=== PATIENT | male | born 1990 | race African-American/Black ===

== ENCOUNTER 2017-01-18 09:53 | Observation (INO) ==
[2017-01-18] MEDS ORDERED: ONDANSETRON 4 MG/2 ML VIAL ONE (10:18)
[2017-01-18] MEDS ORDERED: ALUM/MAG/SIMETH/LIDO VISC 1:1 30 ML BOTTLE PO ONE (10:18)
--- NOTE | 2017-01-18 10:20 | Emergency Department Note ---
Arrival - Arrival Chief Complaint: Abdominal / Flank Pain Stated Complaint: stomach ED Nursing Triage Note: Pt c/o generalized abd pain (sharp pain) with nausea and vomiting x 2 days. Mode of Arrival: Ambulatory Limitations: No Limitations Source: Patient, Significant other, RN Notes Reviewed Time Seen by Provider: 01/18/17 10:09 - History of Present Illness HPI Narrative: 26-year-old -B[place]an male complains of generalized abdominal pain 2 days and nausea and vomiting that started today. Patient states that the abdominal pain is sharp in nature and cramping when he begins to vomit. Patient states "he kind of feels like heartburn." Patient states that he was last able to keep food down on yesterday. Reports that he has had about 6-7 bouts of emesis today. Denies bright red blood in vomit and coffee-ground appearance. Reports last bowel movement on yesterday and describes it as normal. Denies fever, diarrhea, sore throat. He states that he has a history of hypertension for approximately 6 years. He has not been medication compliant. States that he was seen in the ED approximately 2 months ago and was started on hydrochlorothiazide, but does not take that as prescribed. Past medical history: Hypertension Medication: Hydrochlorthiazide Primary care provider: none Allergies/Adverse Reactions: Allergies Allergy/AdvReac Type Severity Reaction Status Date / Time No Known Allergies Allergy Verified 02/28/15 16:45 Home Medications: Home Medications Medication Instructions Recorded Confirmed Type Lisinopril 1 tablet PO DAILY 01/18/17 01/18/17 History hydroCHLOROthiazide 1 tablet PO DAILY 01/18/17 01/18/17 History [Hydrochlorothiazide] Review of System - Review of System 12 point system: reviewed and no additional remarkable complaints except as stated - Review of System Constitutional: Present: as per HPI Head/Ears/Nose/Throat: Present: see HPI Gastrointestinal: Present: as per HPI Medical,Surgical,& Family Hx - Medical History Cardio: History of: Hypertension (does not take his bp meds) - Social History Smoking Status: Current every day smoker Exam Physical Examination: - General General appearance: alert, in no apparent distress - Head Head exam: Present: atraumatic, normocephalic, normal inspection - Eye Eye exam: Present: normal appearance, EOMI - ENT ENT exam: Present: Posterior pharynx mild erythema - Neck Neck exam: Present: normal inspection, full ROM. Absent: tenderness, lymphadenopathy - Chest Chest inspection: Present: symmetric chest wall rise - Respiratory Respiratory exam: Present: normal lung sounds bilaterally - Cardiovascular Cardiovascular exam: Present: regular rate, normal rhythm, normal heart sounds - Abdominal Exam Abdominal exam: Present: soft, hyperactive bowel sounds, epigastric tenderness - Neurological Exam Neurological exam: Present: alert, oriented X3, normal gait - Psychiatric Psychiatric exam: Present: normal affect, normal mood - Skin Skin exam: Present: warm, dry, intact Vital Signs: Vital Signs Temperature 98.2 F 01/19/17 12:00 Pulse Rate 68 01/19/17 12:00 Respiratory Rate 17 01/19/17 12:00 Blood Pressure 145/81 01/19/17 12:00 O2 Sat by Pulse Oximetry 99 01/19/17 12:00 Results - Labs CBC & BMP: 01/19/17 02:43 01/19/17 02:43 Lab Results: I have reviewed the patients labs Labs: Laboratory Tests 01/18/17 01/18/17 01/18/17 10:25 10:25 10:25 WBC 13.6 H RBC 4.69 Hgb 15.0 Hct 42.5 MCV 90.6 MCH 32 MCHC 35.3 RDW 12.8 Plt Count 263 MPV 11.4 Neut % (Auto) 76.1 H Lymph % (Auto) 15.2 L Rains % (Auto) 6.3 Eos % (Auto) 1.7 Baso % (Auto) 0.3 Neut # (Auto) 10.3 H Lymph # (Auto) 2.1 Rains # (Auto) 0.9 H Eos # (Auto) 0.2 Baso # (Auto) 0.0 Immature Gran % 0.4 Nucleated RBC % 0.0 Immature Gran # 0.05 Nucleated RBCs # 0.00 Immature Plt Fraction 0.0 Sodium 139 Potassium 3.9 Chloride 107 Carbon Dioxide 26 Anion Gap 9.9 BUN 43 H Creatinine 6.20 H GFR Calculation 16 BUN/Creatinine Ratio 6.00 Glucose 120 H Hemoglobin A1c 5.5 Calculated Osmolality 288.5 Calcium 9.1 Total Bilirubin 0.40 AST 20 ALT 21 Alkaline Phosphatase 108 Total Protein 8.9 H Albumin 3.7 Globulin 5.2 H Albumin/Globulin Ratio 0.7 L Amylase 246 H Lipase 350.0 Urine Color Urine Appearance Urine pH Ur Specific [place] Urine Protein Urine Glucose (UA) Urine Ketones Urine Blood Urine Nitrate Urine Bilirubin Urine Urobilinogen Urine Leukocytes Urine RBC Urine WBC Ur Squamous Epith Cells Urine Bacteria Ur Culture Indicated? 01/18/17 10:25 WBC RBC Hgb Hct MCV MCH MCHC RDW Plt Count MPV Neut % (Auto) Lymph % (Auto) Rains % (Auto) Eos % (Auto) Baso % (Auto) Neut # (Auto) Lymph # (Auto) Rains # (Auto) Eos # (Auto) Baso # (Auto) Immature Gran % Nucleated RBC % Immature Gran # Nucleated RBCs # Immature Plt Fraction Sodium Potassium Chloride Carbon Dioxide Anion Gap BUN Creatinine GFR Calculation BUN/Creatinine Ratio Glucose Hemoglobin A1c Calculated Osmolality Calcium Total Bilirubin AST ALT Alkaline Phosphatase Total Protein Albumin Globulin Albumin/Globulin Ratio Amylase Lipase Urine Color Straw Urine Appearance Clear Urine pH 6.0 Ur Specific [place] 1.007 Urine Protein >=500 Urine Glucose (UA) Negative Urine Ketones Negative Urine Blood Negative Urine Nitrate Negative Urine Bilirubin Negative Urine Urobilinogen < 2.0 H Urine Leukocytes Negative Urine RBC <1 Urine WBC 2 Ur Squamous Epith Cells Occasional Urine Bacteria Occasional Ur Culture Indicated? Not indicated - Diagnostic Findings Procedure: CT Abdomen and Pelvis: report reviewed by me (No acute intra- abdominal or pelvic pathology present.) Disposition Clinical Impression: Elevated serum creatinine, Nausea and vomiting Case discussed with: patient Disposition: Still a Patient Condition: Guarded
[2017-01-18] MEDS ORDERED: ONDANSETRON 4 MG/2 ML VIAL IV STA (10:30)
[2017-01-18] MEDS ORDERED: ALUM/MAG/SIMETH/LIDO VISC 1:1 30 ML BOTTLE PO STA (10:31)
[2017-01-18] MEDS ORDERED: SODIUM CHLORIDE 0.9% 1,000 ML IV STA (10:31)
[2017-01-18 11:14] LABS: Basophils % 0.3 % (0.0-0.8); Eosinophils # 0.2 10*3/uL (0.0-0.87); Eosinophils % 1.7 % (0.00-10.9); Hematocrit 42.5 VOL% (42.0-52.0); Immature Granulocytes % 0.4 %; Immature Granulocytes Absolute 0.05 #; Lymphocytes # 2.1 10*3/uL (1.4-4.0); Lymphocytes % 15.2 % (21.2-54.2); Mean Corpuscular HGB Conc 35.3 GM/DL (32-36); Mean Corpuscular Hemoglobin 32 PG (27-34); Mean Corpuscular Volume 90.6 FL (87-102); Mean Platelet Volume 11.4 FL (9.6-12.0); Monocytes # 0.9 10*3/uL (0.11-0.8); Monocytes % 6.3 % (1.7-12.7); Neutrophils # 10.3 10*3/uL (1.4-7.4); Neutrophils % 76.1 % (38.7-73.9); Platelet Count 263 T/CUMM (130-400); Red Blood Count 4.69 MC/CUMM (3.8-5.5); Red Cell Distribution Width 12.8 % (9.3-17.3); White Blood Count 13.6 T/CUMM (4-12)
[2017-01-18 11:30] LABS: Albumin 3.7 G/DL (3.4-5.0); Bilirubin,Total 0.4 MG/DL (0.2-1.0); Calcium 9.1 MG/DL (8.5-10.1); Osmolality,Calculated 288.5 MOS/KG (273-304); Potassium 3.9 MMOL/L (3.5-5.1); Total Protein 8.9 G/DL (6.4-8.3)
--- NOTE | 2017-01-18 12:37 | CT Report ---
Exam: CT abdomen pelvis wo con Date: 01/18/2017 11:52 AM Comparison: None Indication: Generalized abdominal pain Total DLP: 254.6 mGy*cm Technical: No oral contrast was administered. Images were obtained from the lung bases to the iliac crest continuation through the pelvis without intravenous contrast with axial sagittal coronal imaging available for review. Dose reduction was performed with decreasing kv and mA and automated exposure Findings: Lung bases: No obvious infiltrates or effusions heart is normal in size Liver and Spleen: Unremarkable Gallbladder and Pancreas: Unremarkable Adrenals: Unremarkable Kidneys: No obvious obstruction or stones present or mass lesion. Stomach: Incomplete distended with air-fluid and debris Retroperitoneum: No enlarged lymph nodes. Aorta and IVC: No obvious aneurysm aorta vessels and IVC are unremarkable. Exam is otherwise limited without contrast. Bowel and Mesentery: Scattered stool and debris present. No evidence of diverticulosis diverticulitis or appendicitis present. No pneumoperitoneum or free fluid Pelvis: Bladder: Incompletely distended with fluid Fluid: No free fluid identified. Lymph nodes: No enlarged lymph nodes. Pelvic organs: Unremarkable Osseous structures: No suspicious appearing osseous abnormalities noted. Impression: 1. No acute intra-abdominal or pelvic pathology present. PROCEDURE INTERPRETED AT [facility] DEPARTMENT OF RADIOLOGY Final Report Signed by: Dr. David Valencia
[2017-01-18] MEDS ORDERED: guaiFENesin/DM ER 600-30 MG TABLET PO PRN (13:08)
[2017-01-18] MEDS ORDERED: ONDANSETRON 4 MG/2 ML VIAL IV PRN (13:08)
[2017-01-18] MEDS ORDERED: DOCUSATE SODIUM 100 MG CAPSULE PO PRN (13:08)
[2017-01-18] MEDS ORDERED: diphenhydrAMINE CAP 25 MG CAPSULE PO PRN (13:08)
[2017-01-18] MEDS ORDERED: ACETAMINOPHEN 325 MG TABLET PO PRN ×2 (13:08)
[2017-01-18] MEDS ORDERED: NICOTINE 21 MG/24 HR PATCH TRANSDERM PRN (13:08)
[2017-01-18] MEDS ORDERED: PROMETHAZINE 25 MG/1 ML VIAL IM PRN (13:08)
[2017-01-18] MEDS ORDERED: SODIUM CHLORIDE 0.9% 1,000 ML IV ONE (13:16)
[2017-01-18] MEDS ORDERED: hydrALAZINE 20 MG/1 ML VIAL IV PRN (13:18)
--- NOTE | 2017-01-18 13:19 | Hospitalist History & Physical ---
Assessment and Plan - Time spent with patient Time spent with patient: Greater than 30 minutes (1) Hypertension Status: Acute Assessment and plan: 26-year-old -Austrian male with history of hypertension and medical noncompliance admitted by the hospitalist service with elevated serum creatinine of 6, abdominal pain, nausea vomiting. Patient will be admitted to the [facility] floor and given bolus and maintenance IV fluids. Patient will be given a clear liquid diet with pain and nausea control. Can advance the diet as tolerated. Patient needs to be started on a kidney protective blood pressure medicine. Will leave this up to Dr. Novoa. Hydralazine IV has been ordered as needed for now. Patient will need follow-up with a primary care physician for his blood pressure medications. We will also consult Dr. Parker from nephrology to evaluate patient's severely elevated creatinine of 6. This most likely is not acute but chronic in nature due to patient's longtime hypertension and medicine noncompliance. Dr. Novoa we will see and examine patient and further recommendations to follow. Current Visit: Yes (2) Elevated serum creatinine Status: Acute Current Visit: Yes (3) Abdominal pain Status: Acute Current Visit: Yes (4) Nausea and vomiting Status: Acute Current Visit: Yes History of Present Illness Chief complaint: Abdominal pain, nausea and vomiting History of present illness: Mr. Patino is a 26 year old -Austrian male with history of hypertension and noncompliance with medications presenting to fast track with 2 day history of abdominal pain associated with nausea vomiting. Patient states the pain is high up in the center of his stomach and hurts constantly. Patient states the vomiting started this morning. Patient denies bloody vomit or diarrhea. Patient states he has a headache when his blood pressures goes up. Patient states he does not have a family physician and when he gets headaches due to blood pressure he goes to the emergency room where he is given a month of blood pressure medication and then when he runs out he stops taking it. Patient has been doing this since he was 20 years old. Patient states he does work and he has a hard time making it to a doctor's appointment. Patient has a low-grade fever and blood pressures mildly elevated at 143/83 now. Upon admission it was 151/114. His white count is mildly elevated at 13.6, but his creatinine is 6.2 with a BUN of 43. His blood sugars are mildly elevated at 120 and he has a mildly elevated amylase at 246. Otherwise his labs are unremarkable. Patient' s UA is pending. CT the abdomen and pelvis is normal. Upon exam patient is nontender in the abdomen and his mucous membranes are moist, skin is warm and dry. After discussion with CLAUDY Arce and admitting hospitalist Dr. Novoa, it was agreed patient would be admitted for further evaluation and treatment. Patient has no medicines listed for home and he is a full code. Home Medications Medication Instructions Recorded Confirmed Type No Known Home Medications [No 02/28/15 02/28/15 History Known Home Medications] Allergies Allergy/AdvReac Type Severity Reaction Status Date / Time No Known Allergies Allergy Verified 02/28/15 16:45 Medical,Surgical,& Family Hx - Medical History Cardio: History of: Hypertension (does not take his bp meds) - Surgical History Abdominal Surgeries: Patient denies: Abdominal Surgery - Family History Family History: Reports;: Family Heart Disease - Social History Smoking Status: Current every day smoker Frequency of Alcohol Use: None Type of Drug Use: None Marital Status: Single Lives With:: Alone Functional capacity: independent ambulation 12 point system: reviewed and no additional remarkable complaints except as stated Exam - Constitutional Vitals: Period Temp Pulse Resp BP Sys/Pulido Pulse Ox Last 24 Hr 99.0 F-99.0 F 63-91 16-20 128-151/81-114 98-100 Exam: Constitutional System: No distress. No tremulousness. Head: Normocephalic, atraumatic. Ears, Nose and Throat System: No evidence of Otitis or Mastoiditis. No epistaxis or discharge Eyes System: Pupils equal, round, and reactive. Extraocular muscles intact. Neck: Supple, without adenopathy, No jugular venous distention. No thyromegaly, neck mass, or prior surgery apparent. Respiratory System: Chest clear to auscultation. Cardiovascular System: Heart with regular rate and rhythm. No murmur. GI System: Abdomen soft, nontender. Normo active bowel sounds present. Musculoskeletal System: limbs with no pedal edema. Full distal pulses. Neurological System: No discernable sensory deficit. No aphasia Psychiatric System: Conversation is rational Results - Labs CBC & BMP: 01/18/17 10:25 01/18/17 10:25 Lab Results: I have reviewed the past 24 hour labs - Diagnostic Findings Procedure: CT Abdomen and Pelvis: report reviewed by me (No acute process)
[2017-01-18] MEDS ORDERED: PANTOPRAZOLE 40 MG TABLET PO SCH (13:30)
[2017-01-18 13:33] LABS: Risk Ratio 3.81; VLDL CHOLESTEROL 33.8 MG/DL
[2017-01-18 13:54] LABS: Apearance,Urine CLEAR (Clear); Bacteria,Urine Occasional /HPF (Few); Bilirubin,Urine Negative (Negative); Blood, Urine Negative (Negative); Glucose,Urine (UA) Negative (Negative); Ketones,Urine Negative (Negative); Nitrite,Urine Negative (Negative); Protein,Urine >=500 MG/DL; RBC,Urine <1 /HPF (0-4); Squamous Epithelial Cell,Urine Occasional /HPF (0-10); Urine Color Straw (Yellow); Urine Specific Gravity 1.007 (1.001-1.035); Urine Urobilinogen < 2.0 EU/DL (0.2-1.0); WBC,Urine 2 /HPF (0-6)
[2017-01-18] MEDS ORDERED: NIFEdipine 10 MG CAPSULE PO PRN (16:26)
[2017-01-18] MEDS: amLODIPine 10 MG TABLET PO SCH (16:47)
[2017-01-18] MEDS: ALUMINUM/MAGNES/SIMETH MAX STR 30 ML UDCUP PO SCH ×2 (16:48→21:26)
[2017-01-18] MEDS: MORPHINE 2 MG/1 ML SYRINGE IV PRN ×2 (17:51→21:27)
[2017-01-18] MEDS: SODIUM CHLORIDE 0.9% 1,000 ML IV SCH (17:58)
--- NOTE | 2017-01-18 18:51 | Nephrology Consult Note ---
History of Present Illness Chief complaint: Acute renal failure History of present illness: Mr. Patino is a 26 year old male with history of hypertension has been working in the outside doing scaffolding work. The patient presented with a 2 day history of abdominal pain with nausea and vomiting. Patient serum creatinine noted to be up to 6.2. Patient denies NSAID use. He admits to tobacco use and denies any alcohol in the last 6-8 months. No shortness of breath or chest pain. No rashes or bruises. No problems going to the bathroom such as dysuria or hematuria. He has been on lisinopril and hydrochlorothiazide for the past month to 6 weeks. Nephrology is been consulted for acute renal failure. Home Medications Medication Instructions Recorded Confirmed Type Lisinopril 1 tablet PO DAILY 01/18/17 01/18/17 History hydroCHLOROthiazide 1 tablet PO DAILY 01/18/17 01/18/17 History [Hydrochlorothiazide] Allergies Allergy/AdvReac Type Severity Reaction Status Date / Time No Known Allergies Allergy Verified 02/28/15 16:45 Medical,Surgical,& Family Hx - Medical History Cardio: History of: Hypertension (does not take his bp meds) - Surgical History Abdominal Surgeries: Patient denies: Abdominal Surgery - Family History Family History: Reports;: Family Heart Disease - Social History Smoking Status: Current every day smoker Frequency of Alcohol Use: None Type of Drug Use: None Review of Systems Constitutional: no anorexia, no lethargy Cardiovascular: no chest pain at rest, no chest pain with activity, no dyspnea Gastrointestinal: abdominal pain, nausea, vomiting Exam - Vital Signs Vital signs: Period Temp Pulse Resp BP Sys/Pulido Pulse Ox Last 24 Hr 98.2 F-99.0 F 59-91 16-20 128-153/81-114 97-100 - General Appearance General appearance: well-developed, well-nourished EENT: ATNC Neck: supple Respiratory: clear Cardiology: regular rate, regular rhythm Gastrointestinal: normoactive bowel sounds, no tenderness Neurologic: CN 3-12 intact Musculoskeletal: no clubbing Psychiatric: mood/affect appropriate, cooperative Results - Labs CBC & BMP: 01/18/17 10:25 01/18/17 10:25 Assessment and Plan (1) Hypertension Status: Chronic Current Visit: Yes Qualifiers: Hypertension type: essential hypertension Qualified Code(s): I10 - Essential (primary) hypertension (2) Elevated serum creatinine Status: Acute Assessment and plan: Acute renal failure. May be some underlying chronic kidney disease. Recommend a renal ultrasound. Daily BMP. Strict I's and O's. Encourage p.o. intake. Current Visit: Yes (3) Abdominal pain Status: Acute Current Visit: Yes (4) Nausea and vomiting Status: Acute Current Visit: Yes
[2017-01-18] MEDS: PANTOPRAZOLE 40 MG TABLET PO SCH (21:27)
[2017-01-18] MEDS: METOPROLOL TARTRATE 25 MG TABLET PO SCH (21:28)
[2017-01-19] MEDS: ALUMINUM/MAGNES/SIMETH MAX STR 30 ML UDCUP PO SCH ×2 (00:53→04:08)
[2017-01-19] MEDS: SODIUM CHLORIDE 0.9% 1,000 ML IV SCH ×3 (00:54→14:55)
[2017-01-19] MEDS: MORPHINE 2 MG/1 ML SYRINGE IV PRN (01:12)
[2017-01-19 03:53] LABS: Basophils % 0.4 % (0.0-0.8); Eosinophils # 0.2 10*3/uL (0.0-0.87); Eosinophils % 2.2 % (0.00-10.9); Hematocrit 36.4 VOL% (42.0-52.0); Hemoglobin 12.4 GM/DL (14.0-18.0); Immature Granulocytes % 0.3 %; Immature Granulocytes Absolute 0.03 #; Lymphocytes # 1.8 10*3/uL (1.4-4.0); Lymphocytes % 16.5 % (21.2-54.2); Mean Corpuscular HGB Conc 34.1 GM/DL (32-36); Mean Corpuscular Hemoglobin 32 PG (27-34); Mean Corpuscular Volume 92.6 FL (87-102); Mean Platelet Volume 11.9 FL (9.6-12.0); Monocytes % 8.6 % (1.7-12.7); Neutrophils # 7.9 10*3/uL (1.4-7.4); Platelet Count 217 T/CUMM (130-400); Red Blood Count 3.93 MC/CUMM (3.8-5.5); Red Cell Distribution Width 12.5 % (9.3-17.3)
[2017-01-19 04:24] LABS: Calcium 8.2 MG/DL (8.5-10.1); Osmolality,Calculated 295.8 MOS/KG (273-304); Potassium 4.4 MMOL/L (3.5-5.1)
[2017-01-19] MEDS: PANTOPRAZOLE 40 MG TABLET PO SCH ×2 (09:27→22:45)
[2017-01-19] MEDS: amLODIPine 10 MG TABLET PO SCH (09:27)
[2017-01-19] MEDS: METOPROLOL TARTRATE 25 MG TABLET PO SCH ×2 (09:27→22:45)
--- NOTE | 2017-01-19 12:12 | Hospitalist Progress Note ---
Hospitalist: Subjective Interval history: The patient was admitted to the hospital with abdominal pain nausea and vomiting. He has history of moderate to severe central hypertension. The patient is improving with less abdominal pain, improved blood pressure, and minimally improved creatinine overnight with hydration. I am going to advance the diet and continue antiacid regimen. Will recheck electrolytes tomorrow. Exam - Constitutional Vitals: Period Temp Pulse Resp BP Sys/Pulido Pulse Ox Last 24 Hr 98.1 F-99.6 F 52-91 18-20 116-153/67-107 93-98 Results - Labs CBC & BMP: 01/19/17 02:43 01/19/17 02:43 Quality Measures - VTE Contraindication to Pharmacological VTE Prophylaxis: Clinical assessment deems Pt at low risk, no prophalaxis needed
--- NOTE | 2017-01-19 14:50 | Ultrasound Report ---
History: Acute renal failure Date: 01/19/2017 Study: Renal ultrasound bilateral kidneys only Comparison exam: No previous similar Real-time ultrasound images are captured and archived. The right kidney measures 9.3 x 3.5 x 5.6 cm; the left kidney measures 9.4 x 3.9 x 4.7 cm. There is no hydronephrosis or abnormal perinephric fluid. There is a 12 mm simple cyst at the lower left pole. There is no obvious solid mass. The renal parenchyma is hyperechoic to the hepatic parenchyma and is essentially isoechoic to the renal sinus fat. Impression: Medical renal parenchymal disease. Simple cyst lower pole left kidney PROCEDURE INTERPRETED AT [facility] DEPARTMENT OF RADIOLOGY Final Report Signed by: Dr. Skylar River
--- NOTE | 2017-01-19 19:12 | Nephrology Progress Note ---
Nephrology - PN: Subj Interval history: Patient continues to do acceptable. Serum creatinine is noted to be 5.8 which is trending down from 6.2 yesterday. No shortness of breath or chest pain. Renal ultrasound shows evidence of chronic kidney disease Exam (PN)-Nephrology - Vital Signs Vital signs: Period Temp Pulse Resp BP Sys/Pulido Pulse Ox Last 24 Hr 98.1 F-99.6 F 52-77 17-19 116-147/67-81 93-99 - General Appearance General appearance: well-developed, well-nourished EENT: ATNC Neck: supple Respiratory: clear Cardiology: regular rate, regular rhythm Gastrointestinal: normoactive bowel sounds Integumentary: no rash Neurologic: alert and oriented x3 Musculoskeletal: no clubbing Psychiatric: mood/affect appropriate, cooperative - Lab 01/19/17 02:43 01/19/17 02:43 Most recent lab results Calcium 8.2 MG/DL (8.5-10.1) L 01/19/17 02:43 Assessment and Plan (1) Hypertension Status: Chronic Current Visit: Yes Qualifiers: Hypertension type: essential hypertension Qualified Code(s): I10 - Essential (primary) hypertension (2) Elevated serum creatinine Status: Acute Assessment and plan: Acute renal failure. Patient has evidence of chronic kidney disease by renal ultrasound. Daily BMP. Strict I's and O's. Encourage p.o. intake. Current Visit: Yes (3) Abdominal pain Status: Acute Current Visit: Yes (4) Nausea and vomiting Status: Acute Current Visit: Yes (5) Chronic kidney disease Status: Chronic Assessment and plan: At this time striving to establish with level of chronic kidney disease this patient has. Do know that renal ultrasound is suggestive of chronic kidney disease with hypoechoic echotexture noted. Daily BMP. Current Visit: Yes
[2017-01-20 06:18] LABS: Calcium 8.1 MG/DL (8.5-10.1); Magnesium 2.1 MG/DL (1.8-2.4); Osmolality,Calculated 293.1 MOS/KG (273-304); Potassium 4.3 MMOL/L (3.5-5.1)
[2017-01-20] MEDS: SODIUM CHLORIDE 0.9% 1,000 ML IV SCH (07:00)
[2017-01-20] MEDS: METOPROLOL TARTRATE 25 MG TABLET PO SCH (09:49)
[2017-01-20] MEDS: amLODIPine 10 MG TABLET PO SCH (09:49)
[2017-01-20] MEDS: PANTOPRAZOLE 40 MG TABLET PO SCH (09:49)
--- NOTE | 2017-01-20 10:45 | Nephrology Progress Note ---
Nephrology - PN: Subj Interval history: Patient continues to do acceptable. Serum creatinine is noted to be 5.8 which is trending down from 6.2 yesterday. No shortness of breath or chest pain. Renal ultrasound shows evidence of chronic kidney disease 01/20/2017. The patient is resting comfortably. Serum creatinine is now down to 5.5. No shortness of breath or chest pain. Patient been able to tolerate his diet. Blood pressure is improved. Exam (PN)-Nephrology - Vital Signs Vital signs: Period Temp Pulse Resp BP Sys/Pulido Pulse Ox Last 24 Hr 98.2 F-98.9 F 66-77 16-18 131-146/67-82 95-99 - General Appearance General appearance: well-developed, well-nourished EENT: ATNC Neck: supple Respiratory: clear Cardiology: regular rate, regular rhythm Gastrointestinal: normoactive bowel sounds, no tenderness Neurologic: alert and oriented x3 Musculoskeletal: no clubbing Psychiatric: mood/affect appropriate, cooperative - Lab 01/19/17 02:43 01/20/17 05:28 Most recent lab results Calcium 8.1 MG/DL (8.5-10.1) L 01/20/17 05:28 Magnesium 2.1 MG/DL (1.8-2.4) 01/20/17 05:28 Assessment and Plan (1) Hypertension Status: Chronic Current Visit: Yes Qualifiers: Hypertension type: essential hypertension Qualified Code(s): I10 - Essential (primary) hypertension (2) Elevated serum creatinine Status: Chronic Assessment and plan: Chronic kidney disease. Encourage p.o. intake. Current Visit: Yes (3) Abdominal pain Status: Acute Current Visit: Yes (4) Nausea and vomiting Status: Acute Current Visit: Yes (5) Chronic kidney disease Status: Chronic Assessment and plan: At this time striving to establish with level of chronic kidney disease this patient has. Do know that renal ultrasound is suggestive of chronic kidney disease with hypoechoic echotexture noted. Patient needs to follow with me in 1 week. Avoid medicines such as Advil, Motrin, or Aleve, Goody powder BC powder. Also patient needs to avoid tobacco products. Current Visit: Yes Qualifiers: Chronic kidney disease stage: stage 4 (severe) Qualified Code(s): N18.4 - Chronic kidney disease, stage 4 (severe)
--- NOTE | 2017-01-20 11:06 | Discharge Summary ---
Hospital Course - Hospital Course Hospital Course: 26-year-old -Omani male with history of hypertension and medical noncompliance admitted by the hospitalist service on 01/18/2017 with elevated serum creatinine of 6, abdominal pain, nausea and vomiting. Patient was started on appropriate blood pressure medications and Dr. Parker from nephrology was consulted. Renal ultrasound shows evidence of chronic kidney disease with hypoechoic echotexture noted. Patient's blood pressures are controlled and his creatinine has decreased to 5.5. He needs to avoid medications such as Advil, Motrin, or Aleve along with Goody BC powder. Patient also instructed to avoid tobacco products. Patient's abdominal pain, nausea, and vomiting have all resolved. He is tolerating a diet and he feels much better. Instructed the patient that is very important that he follow-up with Dr. Parker and take his blood pressure medications as instructed. Patient will be discharged home with Norvasc and Lopressor to start. He will follow-up with Dr. Parker in his office in 1 week with a BMP. Complete discharge instructions were given. Care coordination, chart review, and completed discharge paperwork took approximately 40 minutes. - Time spent with patient Time with patient DS: Greater than 30 minutes Diagnosis - Discharge Diagnosis (1) Hypertension Status: Chronic (2) Elevated serum creatinine Status: Chronic (3) Abdominal pain Status: Resolved (4) Nausea and vomiting Status: Resolved Discharge Plan - Discharge Data Disposition: Disch To Home/Self Care Condition at Discharge: Stable Discharge Diet: low salt diet Activity: resume usual activities as tolerated Driving: no restrictions Contact your physician if you experience:: Nausea/Vomiting - Discharge Medications New amLODIPine [Norvasc] 10 mg PO DAILY #30 tablet Metoprolol Tartrate Tab [Lopressor Tab] 25 mg PO BID #60 tablet Nicotine 21 mg/24 Hr Patch [Nicoderm CQ 21 mg/24 hr Patch] 1 patch TRANSDERM DAILY PRN #30 patch PRN Reason: Nicotine Cravings Discontinued Lisinopril 1 tablet PO DAILY hydroCHLOROthiazide [Hydrochlorothiazide] 1 tablet PO DAILY - Follow Up or Referral Follow Up: Jeremy Parker Jr., MD [Physician] - 1 Week (with BMP) - Forms/Instructions Exam - Constitutional Vitals: Period Temp Pulse Resp BP Sys/Pulido Pulse Ox Last 24 Hr 98.2 F-98.9 F 66-77 16-18 131-146/67-82 95-99 Exam: 26-year-old -Omani male, no acute distress, alert and oriented Chest clear CV regular rate and rhythm Abdomen soft and nontender Extremities no edema Discharge Results Labs on day of discharge: Labs from last 24 hours 01/20/17 05:28 Sodium 142 Potassium 4.3 Chloride 110 H Carbon Dioxide 25 Anion Gap 11.3 BUN 37 H Creatinine 5.50 H GFR Calculation 19 BUN/Creatinine Ratio 6.00 Glucose 127 H Calculated Osmolality 293.1 Calcium 8.1 L Magnesium 2.1 Lipase 322.0 DS: Provider Date of admission: 01/18/17 13:08 Primary care physician: . No PCP Attending physician on admission: Billy Novoa MD Consults: 01/18/17 13:08 Consult to Physician [CONS] Routine Comment: new onset creatinine 6 Consulting Provider: Jeremy Parker Jr. When should Consulting Provider be notified: Now Person Notified: Emelyn Date Notified: 01/18/17 Time Notified: 15:31 Discharging clinician: PRAMOD Terry Expected date of discharge: 01/20/17
[2017-01-20] MEDS: MORPHINE 2 MG/1 ML SYRINGE IV PRN (11:38)
[2017-01-20 12:19] VITALS: BP 134/70
== END 2017-01-20 12:50 | disposition home or self-care (01) ==
LOC: N.ED 09:53 → N.EDINP 09:53 → SUATTDRO 13:08 → N.EDINP 14:42 → N.5E 14:51
PROVIDERS: ADMIT Internal Medicine; ATTEND Internal Medicine

== ENCOUNTER 2018-04-24 00:26 | Inpatient (IN) ==
[2018-04-24] MEDS ORDERED: SODIUM CHLORIDE 0.9% 1,000 ML IV STA (00:51)
[2018-04-24 01:28] LABS: Basophils # 0.1 10*3/uL (0.0-0.2); Basophils % 0.5 % (0.0-0.8); Eosinophils # 0.4 10*3/uL (0.0-0.87); Eosinophils % 3.2 % (0.00-10.9); Hematocrit 27.8 VOL% (42.0-52.0); Hemoglobin 8.9 GM/DL (14.0-18.0); Immature Granulocytes % 0.8 %; Immature Granulocytes Absolute 0.09 #; Lymphocytes # 2.3 10*3/uL (1.4-4.0); Lymphocytes % 21.4 % (21.2-54.2); Mean Corpuscular Hemoglobin 31 PG (27-34); Mean Corpuscular Volume 96.9 FL (87-102); Mean Platelet Volume 12.6 FL (9.6-12.0); Monocytes # 0.8 10*3/uL (0.11-0.8); Monocytes % 6.9 % (1.7-12.7); Neutrophils # 7.3 10*3/uL (1.4-7.4); Neutrophils % 67.2 % (38.7-73.9); Platelet Count 195 T/CUMM (130-400); Red Blood Count 2.87 MC/CUMM (3.8-5.5); Red Cell Distribution Width 12.5 % (9.3-17.3); White Blood Count 10.9 T/CUMM (4-12)
[2018-04-24 01:42] LABS: Apearance,Urine CLEAR (Clear); Bacteria,Urine Occasional /HPF (Few); Bilirubin,Urine Negative (Negative); Blood, Urine Moderate mg/dL (Negative); Glucose,Urine (UA) Negative (Negative); Ketones,Urine Negative (Negative); Mucus,Urine Occasional /LPF (Occasional); Nitrite,Urine Negative (Negative); Protein,Urine 100 MG/DL; RBC,Urine 1 /HPF (0-4); Renal Epithelial Cells,Urine Occasional /HPF (<1); Urine Color Yellow (Yellow); Urine Specific Gravity 1.011 (1.001-1.035); Urine Urobilinogen < 2.0 EU/DL (0.2-1.0); WBC,Urine 3 /HPF (0-6)
[2018-04-24 01:50] LABS: Alanine Aminotransferase 69 U/L (16-61); Albumin 2.6 G/DL (3.4-5.0); Alkaline Phosphatase 141 U/L (45-117); Aspartate Amino Transferase 92 U/L (0-37); Bilirubin,Total < 0.39 MG/DL (0.2-1.0); Blood Urea Nitrogen 90 MG/DL (7-18); CKMB % 0.1 %; Glucose 102 MG/DL (74-106); Osmolality,Calculated 310.1 MOS/KG (273-304); Potassium 3.9 MMOL/L (3.5-5.1); Sodium 142 MMOL/L (136-145); Total Protein 6.3 G/DL (6.4-8.3); Troponin I 0.168 NG/ML (0.00-0.045)
[2018-04-24 01:53] LABS: Calcium < 5.0 MG/DL (8.5-10.1)
[2018-04-24] MEDS ORDERED: hydrALAZINE 20 MG/1 ML VIAL IV STA (02:03)
[2018-04-24] MEDS ORDERED: CALCIUM CHLORIDE 1,000 MG/10 ML SYRINGE IV STA (02:06)
[2018-04-24 02:09] LABS: Barbiturates Screen,Urine Negative (Negative); Benzodiazepines Screen,Urine Negative (Negative); Cannabinoid Screen,Urine Negative (Negative); Opiate Screen,Urine Negative (Negative); Phencyclidine Screen,Urine Negative (Negative)
[2018-04-24] MEDS ORDERED: ONDANSETRON 4 MG/2 ML VIAL IV PRN (02:16)
[2018-04-24] MEDS ORDERED: CALCIUM CHLORIDE 1,000 MG in SODIUM CHLORIDE 0.9% 100 ML IV ONE (02:24)
[2018-04-24] MEDS ORDERED: INFLUENZA VIRUS VACCINE 0.5 ML SYRINGE IM ONE (03:48)
[2018-04-24] MEDS: HEPARIN 5,000 UNIT/1 ML VIAL SUBCUT SCH ×3 (03:50→17:43)
[2018-04-24] MEDS: SODIUM CHLORIDE 0.9% 1,000 ML IV SCH ×2 (03:51→10:51)
[2018-04-24] MEDS ORDERED: CYCLOBENZAPRINE 10 MG TABLET PO ONE (04:02)
[2018-04-24] MEDS: hydrALAZINE 20 MG/1 ML VIAL IV PRN ×2 (04:04→10:52)
[2018-04-24] MEDS: ASPIRIN EC 325 MG TABLET PO SCH ×2 (04:58→09:33)
[2018-04-24 05:16] LABS: Basophils % 0.3 % (0.0-0.8); Eosinophils # 0.2 10*3/uL (0.0-0.87); Eosinophils % 1.3 % (0.00-10.9); Hematocrit 32.6 VOL% (42.0-52.0); Hemoglobin 10.5 GM/DL (14.0-18.0); Immature Granulocytes % 0.5 %; Immature Granulocytes Absolute 0.07 #; Lymphocytes # 1.7 10*3/uL (1.4-4.0); Lymphocytes % 12.3 % (21.2-54.2); Mean Corpuscular HGB Conc 32.2 GM/DL (32-36); Mean Corpuscular Hemoglobin 31 PG (27-34); Mean Corpuscular Volume 95.3 FL (87-102); Mean Platelet Volume 12.5 FL (9.6-12.0); Monocytes # 0.6 10*3/uL (0.11-0.8); Monocytes % 4.5 % (1.7-12.7); Neutrophils # 11.5 10*3/uL (1.4-7.4); Neutrophils % 81.1 % (38.7-73.9); Platelet Count 225 T/CUMM (130-400); Red Blood Count 3.42 MC/CUMM (3.8-5.5); Red Cell Distribution Width 12.6 % (9.3-17.3); White Blood Count 14.1 T/CUMM (4-12)
[2018-04-24 05:30] LABS: Hepatitis A Ab IgM Quant 0.11 Index; Hepatitis A Ab IgM Result Negative (Negative); Hepatitis B Core IgM Quant < 0.05 Index; Hepatitis B Core IgM Result Negative (Negative); Hepatitis B Surface Ag Quant < 0.10 Index; Hepatitis B Surface Ag Result Negative (Negative); Hepatitis C Virus Ab Quant 0.03 Index; Hepatitis C Virus Ab Result Negative (Negative)
[2018-04-24 05:55] LABS: Osmolality,Calculated 309.3 MOS/KG (273-304); Potassium 3.9 MMOL/L (3.5-5.1)
[2018-04-24 07:54] LABS: CKMB % 0.1 %
[2018-04-24 08:00] LABS: Troponin I 0.149 NG/ML (0.00-0.045)
[2018-04-24 08:57] LABS: % Iron Saturation 26.4 % (18-50); Uric Acid 9.3 MG/DL (3.5-7.2)
[2018-04-24] MEDS ORDERED: cloNIDine 0.1 MG TABLET PO SCH (09:00)
[2018-04-24] MEDS: amLODIPine 5 MG TABLET PO SCH (09:33)
[2018-04-24] MEDS: CALCIUM (CARBONATE) 600 MG TABLET PO SCH (09:33)
[2018-04-24 09:52] LABS: Parathyroid Hormone Intact 830.9 PG/ML (18.4-80.1)
[2018-04-24] MEDS: cloNIDine 0.1 MG TABLET PO PRN (14:49)
[2018-04-24 15:31] LABS: CKMB % 0.1 %; Troponin I 0.123 NG/ML (0.00-0.045)
[2018-04-24] MEDS ORDERED: EPOETIN ALFA 10,000 UNIT/1 ML VIAL SUBCUT ONE (16:16)
[2018-04-24 16:52] LABS: PT Patient Result 11.2 SECS; Partial Thromboplastin Time 25.2 SECS (0-40)
[2018-04-24] MEDS: CALCITRIOL 0.5 MCG CAPSULE PO SCH (17:43)
[2018-04-24] MEDS: SODIUM BICARB INJ 100 MEQ, POTASSIUM CHLORIDE INJ 20 MEQ in DEXTROSE 5% 1,000 ML IV SCH (18:18)
[2018-04-24] MEDS: SODIUM BICARBONATE 650 MG TABLET PO SCH (22:10)
[2018-04-25] MEDS: HEPARIN 5,000 UNIT/1 ML VIAL SUBCUT SCH ×3 (02:30→17:31)
[2018-04-25 04:04] LABS: Basophils % 0.4 % (0.0-0.8); Eosinophils # 0.3 10*3/uL (0.0-0.87); Eosinophils % 2.8 % (0.00-10.9); Hematocrit 26.8 VOL% (42.0-52.0); Hemoglobin 8.7 GM/DL (14.0-18.0); Immature Granulocytes % 0.4 %; Immature Granulocytes Absolute 0.04 #; Lymphocytes # 2.1 10*3/uL (1.4-4.0); Lymphocytes % 20.9 % (21.2-54.2); Mean Corpuscular HGB Conc 32.5 GM/DL (32-36); Mean Corpuscular Hemoglobin 31 PG (27-34); Mean Corpuscular Volume 96.4 FL (87-102); Mean Platelet Volume 12.4 FL (9.6-12.0); Monocytes # 0.6 10*3/uL (0.11-0.8); Monocytes % 6.3 % (1.7-12.7); Neutrophils # 6.9 10*3/uL (1.4-7.4); Neutrophils % 69.2 % (38.7-73.9); Platelet Count 188 T/CUMM (130-400); Red Blood Count 2.78 MC/CUMM (3.8-5.5); Red Cell Distribution Width 12.6 % (9.3-17.3); White Blood Count 9.9 T/CUMM (4-12)
[2018-04-25] MEDS: SODIUM BICARB INJ 100 MEQ, POTASSIUM CHLORIDE INJ 20 MEQ in DEXTROSE 5% 1,000 ML IV SCH (04:39)
[2018-04-25 06:09] LABS: Alanine Aminotransferase 62 U/L (16-61); Albumin 2.1 G/DL (3.4-5.0); Alkaline Phosphatase 120 U/L (45-117); Aspartate Amino Transferase 61 U/L (0-37); Blood Urea Nitrogen 80 MG/DL (7-18); Glucose 100 MG/DL (74-106); Potassium 4.1 MMOL/L (3.5-5.1); Sodium 143 MMOL/L (136-145)
[2018-04-25 06:11] LABS: Troponin I 0.117 NG/ML (0.00-0.045)
[2018-04-25 06:13] LABS: Calcium < 5.0 MG/DL (8.5-10.1)
[2018-04-25] MEDS ORDERED: CALCIUM GLUCONATE 2,000 MG in SODIUM CHLORIDE 0.9% 100 ML IV ONE (08:00)
[2018-04-25] MEDS: SODIUM BICARBONATE 650 MG TABLET PO SCH ×2 (08:30→20:37)
[2018-04-25] MEDS: ASPIRIN EC 325 MG TABLET PO SCH (08:31)
[2018-04-25] MEDS: CALCIUM (CARBONATE) 600 MG TABLET PO SCH (08:31)
[2018-04-25] MEDS: amLODIPine 5 MG TABLET PO SCH (08:31)
[2018-04-25] MEDS: CALCITRIOL 0.5 MCG CAPSULE PO SCH (08:31)
[2018-04-25] MEDS ORDERED: EPOETIN ALFA 10,000 UNIT/1 ML VIAL IV PRN (09:22)
[2018-04-25] MEDS ORDERED: ceFAZolin 2,000 MG in PREMIX 1 EACH IV ONE (10:13)
[2018-04-25] MEDS ORDERED: HEPARIN 5,000 UNIT/1 ML VIAL ONE (12:30)
[2018-04-25] MEDS ORDERED: LIDOCAINE 1% 20 ML VIAL ONE (12:30)
[2018-04-25] MEDS ORDERED: LIDOCAINE 1%/EPI INJ 20 ML VIAL ONE (12:42)
[2018-04-25] MEDS: SODIUM CHLORIDE 0.9% 250 ML IV SCH (12:54)
[2018-04-25] MEDS ORDERED: fentaNYL 100 MCG/2 ML VIAL ONE (13:38)
[2018-04-25] MEDS ORDERED: PROPOFOL 200 MG/20 ML VIAL IV ONE (13:38)
[2018-04-25] MEDS ORDERED: SODIUM CHLORIDE 0.9% 100 ML IV ONE (13:39)
[2018-04-25] MEDS ORDERED: MIDAZOLAM 2 MG/2 ML VIAL ONE (13:39)
[2018-04-25] MEDS: cloNIDine 0.1 MG TABLET PO PRN (18:06)
[2018-04-25] MEDS: hydrALAZINE 20 MG/1 ML VIAL IV PRN (21:58)
[2018-04-26] MEDS: HEPARIN 5,000 UNIT/1 ML VIAL SUBCUT SCH ×3 (04:02→18:01)
[2018-04-26 04:31] LABS: Basophils # 0.1 10*3/uL (0.0-0.2); Basophils % 0.5 % (0.0-0.8); Eosinophils # 0.3 10*3/uL (0.0-0.87); Eosinophils % 3.1 % (0.00-10.9); Hematocrit 28.3 VOL% (42.0-52.0); Hemoglobin 9.5 GM/DL (14.0-18.0); Immature Granulocytes % 0.5 %; Immature Granulocytes Absolute 0.05 #; Lymphocytes # 2.3 10*3/uL (1.4-4.0); Lymphocytes % 23.2 % (21.2-54.2); Mean Corpuscular HGB Conc 33.6 GM/DL (32-36); Mean Corpuscular Hemoglobin 32 PG (27-34); Mean Corpuscular Volume 95.6 FL (87-102); Mean Platelet Volume 12.5 FL (9.6-12.0); Monocytes # 0.8 10*3/uL (0.11-0.8); Neutrophils # 6.4 10*3/uL (1.4-7.4); Neutrophils % 64.7 % (38.7-73.9); Platelet Count 195 T/CUMM (130-400); Red Blood Count 2.96 MC/CUMM (3.8-5.5); Red Cell Distribution Width 12.3 % (9.3-17.3); White Blood Count 9.9 T/CUMM (4-12)
[2018-04-26 05:38] LABS: Blood Urea Nitrogen 61 MG/DL (7-18); Glucose 93 MG/DL (74-106); Osmolality,Calculated 299.1 MOS/KG (273-304); Potassium 3.9 MMOL/L (3.5-5.1); Sodium 142 MMOL/L (136-145)
[2018-04-26 05:41] LABS: Calcium 5.3 MG/DL (8.5-10.1)
[2018-04-26] MEDS: SODIUM CHLORIDE 0.9% 250 ML IV SCH (07:10)
[2018-04-26] MEDS ORDERED: MAGNESIUM SULF RIDER 1 GM in PREMIX 1 EACH IV ONE (07:50)
[2018-04-26] MEDS: SODIUM BICARBONATE 650 MG TABLET PO SCH ×2 (08:58→21:18)
[2018-04-26] MEDS: amLODIPine 5 MG TABLET PO SCH (08:58)
[2018-04-26] MEDS: CALCITRIOL 0.5 MCG CAPSULE PO SCH (08:58)
[2018-04-26] MEDS: ASPIRIN EC 325 MG TABLET PO SCH (08:59)
[2018-04-26] MEDS: CALCIUM (CARBONATE) 600 MG TABLET PO SCH (08:59)
[2018-04-26] MEDS ORDERED: CALCIUM GLUCONATE 2,000 MG in SODIUM CHLORIDE 0.9% 100 ML IV ONE (10:00)
[2018-04-26] MEDS ORDERED: HEPARIN 10,000 UNIT/10 ML VIAL IV SCH (15:30)
[2018-04-26] MEDS: cloNIDine 0.1 MG TABLET PO PRN ×2 (15:50→21:18)
[2018-04-26] MEDS: hydrALAZINE 20 MG/1 ML VIAL IV PRN (16:45)
[2018-04-27] MEDS: HEPARIN 5,000 UNIT/1 ML VIAL SUBCUT SCH ×3 (03:29→17:50)
[2018-04-27 04:05] LABS: Basophils % 0.2 % (0.0-0.8); Eosinophils # 0.2 10*3/uL (0.0-0.87); Eosinophils % 1.7 % (0.00-10.9); Hematocrit 29.6 VOL% (42.0-52.0); Hemoglobin 9.5 GM/DL (14.0-18.0); Immature Granulocytes % 0.4 %; Immature Granulocytes Absolute 0.04 #; Lymphocytes # 1.2 10*3/uL (1.4-4.0); Lymphocytes % 13.1 % (21.2-54.2); Mean Corpuscular HGB Conc 32.1 GM/DL (32-36); Mean Corpuscular Hemoglobin 31 PG (27-34); Mean Corpuscular Volume 95.8 FL (87-102); Mean Platelet Volume 12.3 FL (9.6-12.0); Monocytes # 0.9 10*3/uL (0.11-0.8); Monocytes % 9.3 % (1.7-12.7); Neutrophils # 6.9 10*3/uL (1.4-7.4); Neutrophils % 75.3 % (38.7-73.9); Platelet Count 201 T/CUMM (130-400); Red Blood Count 3.09 MC/CUMM (3.8-5.5); Red Cell Distribution Width 12.6 % (9.3-17.3); White Blood Count 9.2 T/CUMM (4-12)
[2018-04-27 04:34] LABS: Calcium 6.3 MG/DL (8.5-10.1); Osmolality,Calculated 290.4 MOS/KG (273-304); Potassium 3.8 MMOL/L (3.5-5.1)
[2018-04-27] MEDS: amLODIPine 5 MG TABLET PO SCH (08:54)
[2018-04-27] MEDS: CALCITRIOL 0.5 MCG CAPSULE PO SCH (08:54)
[2018-04-27] MEDS: CALCIUM (CARBONATE) 600 MG TABLET PO SCH (08:54)
[2018-04-27] MEDS: ASPIRIN EC 325 MG TABLET PO SCH (08:54)
[2018-04-27] MEDS: SODIUM BICARBONATE 650 MG TABLET PO SCH ×2 (08:54→21:16)
[2018-04-27] MEDS: cloNIDine 0.1 MG TABLET PO PRN ×2 (08:54→21:16)
[2018-04-28] MEDS: HEPARIN 5,000 UNIT/1 ML VIAL SUBCUT SCH ×3 (02:31→20:43)
[2018-04-28 04:11] LABS: Basophils # 0.1 10*3/uL (0.0-0.2); Basophils % 0.6 % (0.0-0.8); Eosinophils # 0.3 10*3/uL (0.0-0.87); Eosinophils % 4.1 % (0.00-10.9); Hematocrit 28.3 VOL% (42.0-52.0); Hemoglobin 9.2 GM/DL (14.0-18.0); Immature Granulocytes Absolute 0.08 #; Lymphocytes # 1.8 10*3/uL (1.4-4.0); Lymphocytes % 22.3 % (21.2-54.2); Mean Corpuscular HGB Conc 32.5 GM/DL (32-36); Mean Corpuscular Hemoglobin 32 PG (27-34); Mean Corpuscular Volume 97.3 FL (87-102); Mean Platelet Volume 11.8 FL (9.6-12.0); Monocytes % 12.2 % (1.7-12.7); Neutrophils # 4.7 10*3/uL (1.4-7.4); Neutrophils % 59.8 % (38.7-73.9); Platelet Count 211 T/CUMM (130-400); Red Blood Count 2.91 MC/CUMM (3.8-5.5); Red Cell Distribution Width 12.7 % (9.3-17.3); White Blood Count 7.8 T/CUMM (4-12)
[2018-04-28 04:28] LABS: Osmolality,Calculated 295.1 MOS/KG (273-304); Potassium 4.3 MMOL/L (3.5-5.1)
[2018-04-28 04:29] LABS: Calcium 5.5 MG/DL (8.5-10.1)
[2018-04-28] MEDS ORDERED: CALCIUM GLUCONATE 2,000 MG in SODIUM CHLORIDE 0.9% 100 ML IV ONE (05:00)
[2018-04-28] MEDS: hydrALAZINE 20 MG/1 ML VIAL IV PRN (05:12)
[2018-04-28] MEDS: CALCIUM (CARBONATE) 600 MG TABLET PO SCH (08:14)
[2018-04-28] MEDS: SODIUM BICARBONATE 650 MG TABLET PO SCH ×2 (08:14→20:43)
[2018-04-28] MEDS: CALCITRIOL 0.5 MCG CAPSULE PO SCH (08:14)
[2018-04-28] MEDS: ASPIRIN EC 325 MG TABLET PO SCH (08:14)
[2018-04-28] MEDS: amLODIPine 5 MG TABLET PO SCH (08:15)
[2018-04-28] MEDS: cloNIDine 0.1 MG TABLET PO PRN ×2 (17:26→20:43)
[2018-04-29] MEDS: HEPARIN 5,000 UNIT/1 ML VIAL SUBCUT SCH ×3 (04:02→19:10)
[2018-04-29 06:10] LABS: Osmolality,Calculated 284.4 MOS/KG (273-304); Potassium 4.4 MMOL/L (3.5-5.1)
[2018-04-29] MEDS: CALCITRIOL 0.5 MCG CAPSULE PO SCH (08:35)
[2018-04-29] MEDS: SODIUM BICARBONATE 650 MG TABLET PO SCH (08:36)
[2018-04-29] MEDS: CALCIUM (CARBONATE) 600 MG TABLET PO SCH (08:37)
[2018-04-29] MEDS: amLODIPine 5 MG TABLET PO SCH (08:37)
[2018-04-29] MEDS: ASPIRIN EC 325 MG TABLET PO SCH (08:37)
[2018-04-29] MEDS: cloNIDine 0.1 MG TABLET PO PRN (12:17)
[2018-04-29] MEDS ORDERED: POTASSIUM PHOS/SOD PHOS POWDER 250 MG PACK PO ONE (15:08)
[2018-04-30] MEDS: HEPARIN 5,000 UNIT/1 ML VIAL SUBCUT SCH ×2 (03:20→10:52)
[2018-04-30 04:56] LABS: Calcium 5.9 MG/DL (8.5-10.1); Osmolality,Calculated 292.1 MOS/KG (273-304); Potassium 4.2 MMOL/L (3.5-5.1)
[2018-04-30] MEDS: amLODIPine 5 MG TABLET PO SCH (08:50)
[2018-04-30] MEDS: CALCIUM (CARBONATE) 600 MG TABLET PO SCH (08:50)
[2018-04-30] MEDS: ASPIRIN EC 325 MG TABLET PO SCH (08:50)
[2018-04-30] MEDS: CALCITRIOL 0.5 MCG CAPSULE PO SCH (08:50)
[2018-04-30 12:43] VITALS: BP 155/93
== END 2018-04-30 13:53 | disposition home or self-care (01) | DRG 469 ==
LOC: N.ED 00:26 → N.EDINP 02:16 → SUATTDRO 02:16 → N.CC 03:00 → N.TELEN 15:48
PROVIDERS: ADMIT Internal Medicine Cardiovascular Disease; ATTEND Internal Medicine